=== PATIENT | male | born 1990 | race Caucasian/White ===

== ENCOUNTER 2017-03-07 00:38 | Emergency (ER) | payer OTHER, MEDICAID ==
--- NOTE | 2017-03-07 00:41 | EDPHY ---
H & P Source: Patient, EMS - Personal History Tetanus Vaccine Date: 2012 - Medical/Surgical History Other PMH: bipolar - Social History Smoking Status: Current every day smoker HPI/ROS: HPI CHIEF COMPLAINT: Chronic Suicidal ideation, painful urination HISTORY OF PRESENT ILLNESS: Patient is a 26-year-old male significant past medical history for schizoaffective disorder, off of his lithium, presents emergency room by EMS for dysuria x1 day and for chronic suicidal ideation without a plan. Patient tells me that he is chronically suicidal. He feels anxious and has panic attacks. He smokes marijuana daily. He has no specific plan tonight. He does state he suicidal but this is a chronic issue. He is requesting to speak to mental health. Additionally he tells me he has had painful urination x1 day but no discharge, no swelling, no trauma, no abdominal pain or back pain. Past Medical History: Schizoaffective disorder, anxiety, panic attacks Past Surgical History: No recent surgery Social History: Daily marijuana use Family History: Noncontributory ROS REVIEW OF SYSTEMS: A comprehensive 10 point review of systems is otherwise negative aside from elements mentioned in the history of present illness. Exam Constitutional appears well nontoxic, triage nursing summary reviewed, vital signs reviewed, awake/alert. Eyes normal conjunctivae and sclera, EOMI, PERRLA. HENT normal inspection, atraumatic, moist mucus membranes, no epistaxis, neck supple/ no meningismus, no raccoon eyes. Respiratory clear to auscultation bilaterally, normal breath sounds, no respiratory distress, no wheezing. Cardiovascular rate normal, regular rhythm, no murmur, no edema, distal pulses normal. Gastrointestinal soft, non-tender, no rebound, no guarding, normal bowel sounds, no distension, no pulsatile mass. Genitourinary no CVA tenderness. Musculoskeletal no midline vertebral tenderness, full range of motion, no calf swelling, no tenderness of extremities, no meningismus, good pulses, neurovascularly intact. Skin pink, warm, & dry, no rash, skin atraumatic. Neurologic awake, alert and oriented x 3, AAOx3, moves all 4 extremities equally, motor intact, sensory intact, CN II-XII intact, normal cerebellar, normal vision, normal speech. Psychiatric normal mood/affect. Heme/Lymph/Immune no lymphadenopathy. Differential Diagnosis: Includes but is not limited to in a particular order, chronic suicidal ideation, schizoaffective disorder off medication, urinary tract infection, cystitis Medical Decision Making: Plan for this patient check urinalysis, blood work, lithium level, patient is voluntary like to speak to mental health. Re-evaluation: 0259AM: Patient's urinalysis shows bacteria. Will send for culture. 1 g IV Rocephin. Given the emergency room. Medically cleared for evaluation. 0556AM: Will schedule this patient on Keflex here in emergency room. (Ernie Hawthorne) Constitutional: Initial Vital Signs Temperature (C) 36.4 C 03/07/17 01:06 Heart Rate 76 03/07/17 01:06 Respiratory Rate 16 03/07/17 01:06 Blood Pressure 154/87 H 03/07/17 01:06 O2 Sat (%) 100 03/07/17 01:06 O2 Delivery Mode Room Air Allergies/Adverse Reactions: RESPIRADOL Allergy (Uncoded 02/23/15 17:48) Home Medications: Medication Instructions Recorded [place] Carbonate ER [Lithobid] 900 mg PO HS 02/26/11 OXcarbazepine [Trileptal 300mg 450 mg PO BID 08/17/12 (RX)] Zyprexa 02/23/15 Cephalexin [Keflex] 500 mg PO Q6H #28 cap 03/07/17 Medical Decision Making ED Course/Re-evaluation: 7:00 a.m. I evaluated the patient. He is tremulous and hiding under a blanket. He was asleep prior to my entering the room. He is awaiting psychiatric evaluation. He has been medically cleared and is being treated with Keflex for a possible urinary tract infection. 1:00 p.m. the patient has been evaluated by Mental Health. They are planning to place him in a crisis stabilization unit you get him back on his medications. The 3:00 p.m. care transferred to Dr. Ean Azul at shift change. (Eric Langley) Differential Diagnosis: Partial list of the Differential diagnosis considered include but were not limited to; schizophrenia, bipolar, substance abuse and although unlikely based on the history and physical exam, I also considered head injury, infection. (Eric Langley) Other Provider: Patient has been accepted to inpatient psychiatric facility. (Ean Azul) - Data Points Laboratory Results: Laboratory Results 03/07/17 00:53 03/07/17 00:53 03/07/17 09:25 C.trachomatis RNA (TMA) Pending N.gonorrhoeae RNA (TMA) Pending Microbiology Results: MICROBIOLOGY 03/07/17 01:15 Urine,Clean Catch Urine Culture - Preliminary Medications Given: Discontinued Medications Ceftriaxone Sodium/Dextrose (Rocephin 1 Gm (Premix)) 50 mls @ 100 mls/hr IV EDNOW ONE PRN Reason: Protocol Stop: 03/07/17 02:10 Last Admin: 03/07/17 01:50 Dose: 50 mls Sodium Chloride (Ns) 1,000 mls @ 0 mls/hr IV ONCE ONE PRN Reason: Wide Open Stop: 03/07/17 04:30 Last Admin: 03/07/17 04:34 Dose: 1,000 mls Departure - Departure Disposition: Other Psych, Not [place] Clinical Impression: Acute psychosis UTI (urinary tract infection) Qualifiers: Urinary tract infection type: acute cystitis Hematuria presence: with hematuria Qualified Code(s): N30.01 - Acute cystitis with hematuria Condition: Fair Instructions: Urinary Tract Infection in Men (ED) Additional Instructions: 1. Drink lots of fluids stay well-hydrated. 2. Take antibiotic as prescribed. 3. Return to the emergency room if you have any worsening symptoms questions or concerns. Referrals: Patient,NotPresent [Unknown] - As per Instructions Prescriptions: Cephalexin [Keflex] 500 mg PO Q6H #28 cap
[2017-03-07 01:04] LABS: % IMMATURE GRANULYOCYTES 0.4 % (0.0-1.1); ABSOLUTE IMMATURE GRANULOCYTES 0.07 10^3/uL (0.00-0.10); ADD DIFF? NO; ADD MORPH? NO; ADD SCAN? NO; ATYPICAL LYMPHOCYTE FLAG 0 (0-99); FRAGMENT RBC FLAG 0 (0-99); HEMATOCRIT 42.7 % (40.0-51.0); HEMOGLOBIN 14.9 g/dL (13.7-17.5); LEFT SHIFT FLG 0 (0-99); LIPEMIA HEMOLYSIS FLAG 90 (0-99); MEAN CELL HEMOGLOBIN 33.2 pg (27.9-34.1); MEAN CELL HEMOGLOBIN CONCENTR. 34.9 g/dL (32.4-36.7); MEAN CELL VOLUME 95.1 fL (81.5-99.8); MEAN PLATELET VOLUME 10.3 fL (8.7-11.7); PLATELET CLUMPS FLAG 0 (0-99); PLATELET COUNT 279 10^3/uL (150-400); RED BLOOD CELL COUNT 4.49 10^6/uL (4.40-6.38); RED CELL DISTRIBUTION WIDTH 11.8 % (11.5-15.2)
[2017-03-07 01:22] LABS: ANION GAP 17 mEq/L (8-16); CARBON DIOXIDE 16 mEq/l (22-31); CHLORIDE 101 mEq/L (97-110); CREATININE 1.5 mg/dL (0.7-1.3); ETHANOL SERUM < 10 mg/dL (0-10); GLOMERULAR FILTRATION RATE 56; GLUCOSE 86 mg/dL (70-100); POTASSIUM 3.8 mEq/L (3.5-5.2); SALICYLATE < 1.0 mg/dL (2.0-20.0); SODIUM 134 mEq/L (134-144)
[2017-03-07 01:24] LABS: LITHIUM < 0.2 mEq/L (0.6-1.2)
[2017-03-07 01:26] LABS: COLOR PALE YELLOW; LEUKOCYTE ESTERASE,URINE NEGATIVE (NEGATIVE); NITRITE,URINE NEGATIVE (NEGATIVE)
[2017-03-07 01:35] LABS: BACTERIA TRACE /hpf (NONE SEEN)
[2017-03-07 01:38] LABS: WBC,URINE NONE SEEN /hpf (0-3)
[2017-03-07] MEDS ORDERED: NS 1,000 ML IV ONE (04:29)
[2017-03-07] MEDS: CEPHALEXIN 500 MG CAP PO SCH ×3 (06:09→16:35)
[2017-03-07 07:38] VITALS: TEMP 97.9
[2017-03-07] MEDS ORDERED: CEPHALEXIN 500MG PREPACK#4 BTL TAKEHOME ONE ×2 (17:31→17:36)
[2017-03-07 17:48] VITALS: BP 123/82; PULSE 70; RESP 16; O2SAT 99
[2017-03-08 12:40] LABS: CHLAMYDIA AMPLIFICATION GENPRB NEGATIVE (NEGATIVE)
== END 2017-03-07 17:47 ==
LOC: EDUNIT#
DX: F23 Brief psychotic disorder (principal); N30.01 Acute cystitis with hematuria; F17.200 Nicotine dependence, unspecified, uncomplicated
CPT/HCPCS: 96361; 96365; 99285; J0696; 80305; G0480

== ENCOUNTER 2017-09-16 01:18 | Emergency (ER) | payer OTHER, MEDICAID ==
[2017-09-16 01:29] VITALS: BP 127/70; PULSE 69; RESP 15; TEMP 97.9; O2SAT 97
--- NOTE | 2017-09-16 01:36 | EDPHY ---
H & P Stated Complaint: Discoloration in foot 1.5+ years HPI/ROS: HPI CHIEF COMPLAINT: Foot callus HISTORY OF PRESENT ILLNESS: This patient very pleasant 27-year-old male, otherwise healthy does have a history of schizoaffective disorder, and bilateral foot calluses chronically. He presents emergency room stating that he would like podiatry referral for his callus. He denies any infection. Denies fever. Denies recent illness. Past Medical History: Schizoaffective disorder. Past Surgical History: No recent surgery. Social History: Lives in [place]. Denies drugs alcohol tobacco. Family History: Noncontributory ROS REVIEW OF SYSTEMS: A comprehensive 10 point review of systems is otherwise negative aside from elements mentioned in the history of present illness. Exam Constitutional appears well nontoxic triage nursing summary reviewed, vital signs reviewed, awake/alert. Eyes normal conjunctivae and sclera, EOMI, PERRLA. HENT normal inspection, atraumatic, moist mucus membranes, no epistaxis, neck supple/ no meningismus, no raccoon eyes. Respiratory clear to auscultation bilaterally, normal breath sounds, no respiratory distress, no wheezing. Cardiovascular rate normal, regular rhythm, no murmur, no edema, distal pulses normal. Gastrointestinal soft, non-tender, no rebound, no guarding, normal bowel sounds, no distension, no pulsatile mass. Genitourinary no CVA tenderness. Musculoskeletal no midline vertebral tenderness, full range of motion, no calf swelling, no tenderness of extremities, no meningismus, good pulses, neurovascularly intact. Skin pink, warm, & dry, no rash, skin atraumatic. Bilateral plantar region of feet: This shows multiple calluses very large. No signs of infection. Neurologic awake, alert and oriented x 3, AAOx3, moves all 4 extremities equally, motor intact, sensory intact, CN II-XII intact, normal cerebellar, normal vision, normal speech. Psychiatric normal mood/affect. Heme/Lymph/Immune no lymphadenopathy. Differential Diagnosis: Includes but is not limited to in a particular order chronic foot callus. Medical Decision Making: Will refer the patient to podiatry. Return precautions discussed Source: Patient - Personal History Current Tetanus/Diphtheria Vaccine: Yes Current Tetanus Diphtheria and Acellular Pertussis (TDAP): Yes Tetanus Vaccine Date: 2012 - Medical/Surgical History Hx Asthma: No Hx Chronic Respiratory Disease: No Hx Diabetes: No Hx Cardiac Disease: No Hx Renal Disease: No Hx Cirrhosis: No Hx Alcoholism: No Hx HIV/AIDS: No Hx Splenectomy or Spleen Trauma: No Other PMH: bipolar - Social History Smoking Status: Current every day smoker Constitutional: Initial Vital Signs Temperature (C) 36.6 C 09/16/17 01:25 Heart Rate 69 09/16/17 01:25 Respiratory Rate 15 09/16/17 01:25 Blood Pressure 127/70 H 09/16/17 01:25 O2 Sat (%) 97 09/16/17 01:25 O2 Delivery Mode Room Air Allergies/Adverse Reactions: RESPIRADOL Allergy (Uncoded 02/23/15 17:48) Home Medications: Medication Instructions Recorded [place] Carbonate ER [Lithobid] 900 mg PO HS 02/26/11 OXcarbazepine [Trileptal 300mg 450 mg PO BID 08/17/12 (RX)] Zyprexa 02/23/15 Departure - Departure Disposition: Home, Routine, Self-Care Clinical Impression: Callus of foot Condition: Good Instructions: Chronic Wounds (ED) Referrals: [facility] [Other] - As per Instructions Opal Cuevas DPM [Doctor of Podiatric Medicine] - As per Instructions
== END 2017-09-16 01:55 | disposition home or self-care (01) ==
DX: L84 Corns and callosities (principal); F17.200 Nicotine dependence, unspecified, uncomplicated

== ENCOUNTER 2017-10-21 21:01 | Emergency (ER) | payer OTHER, MEDICAID ==
[2017-10-21 21:15] VITALS: TEMP 98.1
[2017-10-21] MEDS ORDERED: HYDROGEN PEROXIDE 236 ML BOTTLE TP ONE (21:56)
--- NOTE | 2017-10-21 22:25 | EDPHY ---
H & P Time Seen by Provider: 10/21/17 21:34 HPI/ROS: CHIEF COMPLAINT: Hearing loss HISTORY OF PRESENT ILLNESS: 27-year-old male presents to the emergency department stating that over last 1 week he has been having difficulty hearing out of both ears. He denies trauma. Denies pain. No treatment at home. ROS: No drainage from his ears. No chest pain. No headache. No URI symptoms. Past Medical/Surgical History: Bipolar Social History: Single Smoking Status: Current every day smoker Physical Exam: On examination the patient has cerumen impaction noted to both ears. Unable to visualize tympanic membranes. No other foreign bodies noted. No pre or postauricular lymphadenopathy. No cervical lymphadenopathy. No posterior pharyngeal injection noted. Constitutional: Initial Vital Signs Temperature (C) 36.7 C 10/21/17 21:12 Heart Rate 69 10/21/17 21:12 Respiratory Rate 18 10/21/17 21:12 Blood Pressure 151/84 H 10/21/17 21:12 O2 Sat (%) 99 10/21/17 21:12 O2 Delivery Mode Room Air Allergies/Adverse Reactions: RESPIRADOL Allergy (Uncoded 10/21/17 21:12) Home Medications: Medication Instructions Recorded [place] Carbonate ER [Lithobid] 900 mg PO HS 02/26/11 OXcarbazepine [Trileptal 300mg 450 mg PO BID 08/17/12 (RX)] Zyprexa 02/23/15 MDM/Departure - [facility] ED Course/Re-evaluation: 27-year-old male presents with cerumen impaction to both ears. The ears were thoroughly irrigated. The patient had complete resolution of his symptoms and then could hear normally. Tympanic membranes are clear. No signs of infection. - Depart Disposition: Home, Routine, Self-Care Clinical Impression: Impacted cerumen of both ears Condition: Good Instructions: Cerumen Impaction (ED) Additional Instructions: Keep your ears dry. Return if you have any other concerns. Referrals: [facility],. [Clinic] - As per Instructions
[2017-10-21 22:29] VITALS: BP 140/75; PULSE 65; RESP 16; O2SAT 96
== END 2017-10-21 22:29 | disposition home or self-care (01) ==
PROC: 3E1B78Z Irrigation of Ear using Irrigating Substance, Via Natural or Artificial Opening (ICD-10-PCS; principal; 2017-10-21)
DX: H61.23 Impacted cerumen, bilateral (principal); F17.200 Nicotine dependence, unspecified, uncomplicated